=== PATIENT | female | born 1935 | race Caucasian/White ===

== ENCOUNTER → 2016-08-09 | Day surgery (SDC) | payer MEDICARE, BC ==
[~2016-08-09] VITALS: Ht 167.6 cm; Wt 60.3 kg
[~2016-08-09] MED LIST: FOLIC ACID 40400 MCG PO; LEXAPRO10 MG PO; MACROBID100 MG PO; MIRALAX17 GM PO; MYRBETRIQ25 MG PO; PRILOSEC20 MG PO; PYRIDIUM100 MG PO; TYLENOL/COD#3**1 TAB PO; TYLENOL325 MG PO; ZINC OXIDE OINT30 GM TOP
--- NOTE | ~2016-08-09 | OR ---
PATIENT'S NAME: LEROY SANTIAGO [facility] AGE: 81 Y [address] ROOM: [place] [address] LOCATION: [facility] [place] ADMIT DATE: 08/09/2016 OR/Procedure Report DISCHARGE DATE: FAMILY PHYSICIAN: ALANA NEWBERRY MD ATTENDING PHYSICIAN: Bossman Pardo SURGEON: Bossman Pardo MD RN ORTHOPEDIC: DATE OF PROCEDURE: 08/09/2016 PREOPERATIVE DIAGNOSIS: Gross hematuria with abnormal cystoscopy and bilateral hydronephrosis. POSTOPERATIVE DIAGNOSIS: Gross hematuria with abnormal cystoscopy and bilateral hydronephrosis, with pathology pending. PROCEDURES PERFORMED: 1. Cystoscopy and retrograde. 2. Bladder biopsies. ANESTHESIA: Sedation. INDICATION: This is an 81-year-old lady with history of recurrent urinary tract infections and gross hematuria. She had previously been evaluated and followed in [place], [place]. Her diagnoses go back to at least 2014. I first met her last month. She had had a recent cystoscopy in [place] demonstrating a "bladder that appeared diffusely inflamed." Cystoscopy and bladder biopsies were recommended. In addition, retrograde and possible ureteroscopy were being entertained because of bilateral hydronephrosis by CT scan. She had the CT scan for abdominal pain symptoms. She has discomfort in the suprapubic region. She had associated renal insufficiency noted at our initial visit. Her GFR is approximately 47 today. Because of the travel distance, she and the family decided to have the followup evaluation done here rather than in [place]. DESCRIPTION OF PROCEDURE: Having obtained informed consent, the patient was taken to the cystoscopy suite. She was prepped and draped sterilely and in lithotomy position. IV sedation was administered. A 21-Citizen [place] cystoscope was assembled and guided into the urethra. The course of the urethra was unremarkable. The bladder itself demonstrated diffuse inflammatory changes. With filling of the bladder and then subsequent emptying, she had bleeding. Her orifices were misshapen. We could look up into the right orifice. She had no obvious papillary mucosal lesions. Bladder examination was confirmed with a 70-degree lens. She carried a diagnosis of chronic cystitis. 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 She is many years status post hysterectomy, but I do not believe she has had radiation. PATIENT'S NAME: LEROY SANTIAGO [facility] AGE: 81 Y [address] ROOM: [place] [address] LOCATION: [facility] [place] ADMIT DATE: 08/09/2016 OR/Procedure Report DISCHARGE DATE: FAMILY PHYSICIAN: ALANA NEWBERRY MD ATTENDING PHYSICIAN: Bossman Pardo Preliminary survey was undertaken. She had a clip in the right upper quadrant. I suspected that it might have been in her gallbladder fossa, but as we will see on the retrograde studies, it was overlying a renal shadow. There were no other calcifications appreciated. There were no stones reported by her outside CT. Contrast instilled into the right side first. The distal third was pristine and narrow. The middle third was markedly dilated. Interestingly, the proximal third was then once again narrowed. This was not simply a function of peristalsis. I watched it. She had clubbing of the calices. The left side was similar, but it had more uniform dilation from the calices all the way down to the bladder level. I suspect her bladder was the source of the bilateral hydronephrosis. With her current level of renal function and with the friable bladder, I opted not to stent her. I also saw no indication for ureteroscopy. Therefore, the cold cup biopsy forceps were placed. I biopsied the printing sales representative areas from the right side and left side as well as from the trigone. That tissue was sent to pathology. I then used the Bugbee to cauterize the biopsy sites. The patient tolerated the procedure well. Blood loss was minimal. The above- noted specimens were sent. The patient returned to the outpatient recovery area awake and in stable condition. We will continue with her antibiotic suppression that had been started previously. Otherwise, I will follow up the pathology report. BOSSMAN PARDO MD SF/modl /[id number] CC: Alana Newberry MD d: 08/09/16 1515 t: 08/15/16 1309, OPERATIVE SUMMARY
[2016-08-09 11:44] LABS: BASOPHIL % 1.1 %; EOSINOPHIL # 0.3 K/uL (0.0-0.5); EOSINOPHIL % 6.7 %; HEMATOCRIT 35.4 % (30.0-46.0); HEMOGLOBIN 11.1 g/dL (10.0-15.0); IMMATURE GRANULOCYTE % 0.3 %; LYMPHOCYTE % 25.4 %; MCH 27.5 pg (27.0-34.0); MCHC 31.4 gm/dL (32.0-36.5); MCV 87.8 fl (83.0-98.0); MONOCYTE # 0.4 K/uL (0.0-1.0); MPV 8.3 fl (9.4-12.4); NEUTROPHIL # (ANC) 2.1 K/uL (1.8-7.8); NEUTROPHIL % 55.5 %; NRBC % 0 /100WBC (0-0.00); PLATELET COUNT 254 K/uL (150-450); RBC 4.03 M/uL (3.00-5.00); RDW-CV 14.5 % (11.9-14.6); WBC 3.7 K/uL (4.0-11.0)
[2016-08-09 12:02] LABS: ALBUMIN 3.5 gm/dL (3.5-5.0); ANION GAP 12.1 (10.0-19.0); CALCIUM 9.1 mg/dL (8.5-10.5); CREATININE 1.1 mg/dL (0.5-1.1); POTASSIUM 4.1 mMol/L (3.7-5.1); TOTAL BILIRUBIN 0.5 mg/dL (0.0-1.5); TOTAL PROTEIN 7.8 g/dL (6.0-8.4)
== END | disposition disaster alternative care site (69) ==
LOC: GPOC 08-05 13:00 → GSDC 10:50
PROVIDERS: Urology
PROC: 0TBB8ZX Excision of Bladder, Via Natural or Artificial Opening Endoscopic, Diagnostic (ICD-10-PCS; principal; 2016-08-09)
PROC: BT14ZZZ Fluoroscopy of Kidneys, Ureters and Bladder (ICD-10-PCS; 2016-08-09)
DX: N30.01 Acute cystitis with hematuria (principal); N30.21 Other chronic cystitis with hematuria; N30.41 Irradiation cystitis with hematuria; N32.89 Other specified disorders of bladder; N13.30 Unspecified hydronephrosis; F03.90 Unspecified dementia, unspecified severity, without behavioral disturbance, psychotic disturbance, mood disturbance, and anxiety; D64.9 Anemia, unspecified; Z98.890 Other specified postprocedural states; Z79.899 Other long term (current) drug therapy; Z88.2 Allergy status to sulfonamides; Z88.0 Allergy status to penicillin
CPT/HCPCS: J1956; J2001; J3010; J7030